=== PATIENT | male | born 1955 | race Caucasian/White ===

== ENCOUNTER 2022-03-24 17:07 | Inpatient (IN) | payer OTHER ==
[2022-03-24] VITALS (367 sets, daily range): BP systolic 120–230; BP diastolic 69–104; PULSE 35–56; TEMP 97.6–97.9; O2SAT 82–100
[~2022-03-24] VITALS: Ht 188 cm; Wt 96.8 kg
[~2022-03-24 17:07] MED LIST: ACCUPRIL10 M1; BYSTOLIC2.5 MG PO; CARDURA 8MG TAB8 MG PO; CATAPRES 0.1MG0.1 MG PO; GLUCOPHAGE1000 MG PO; HUMALOG100 U/ML; LANTUS100 U/ML SC; LIPITOR20 MG PO; MICROZIDE12.5 MG PO; MULTIPLE VITAMI1 CAP PO; OMEGA-3 FISH1200 MG PO
[2022-03-24 18:23] LABS: TSH w REFLEX 1.676 uIU/mL (0.350-4.940)
[2022-03-24 18:25] LABS: TROPONIN-I 0.047 ng/mL (0.00-0.033)
[2022-03-24] MEDS ORDERED: ASPIRIN 81M81 MG/TA2 PO (18:42)
[2022-03-24] MEDS ORDERED: NEURONTIN300 MG/CAP PO (18:47)
[2022-03-24] MEDS ORDERED: TOPROL XL 50MG50 MG PO (18:48)
[2022-03-24] MEDS ORDERED: KLOR-CON M2020 MEQ PO (18:49)
--- NOTE | 2022-03-24 19:41 | NUR ---
PT ARRIVED FROM [facility] VIA EMS. PT A&O, ON ROOM AIR. ADMISSION COMPLETED. HOSPITALIST AND CARDIOLOGY ASSESSED PT. PT HAS ELEVATED SBP. HOSPITALIST AWARE AND STARTED ON CARDENE GTT. HOSPITALIST AWARE OF PT HR. PT ONLY C/O OF "UNSTEADINESS" WHEN STANDING TO USE URINAL AT BEDSIDE. DENIES DIZZINESS, N/V, CHEST PAIN.
[2022-03-25] VITALS (915 sets, daily range): BP systolic 135–183; BP diastolic 72–95; PULSE 42–71; TEMP 98–98.4; O2SAT 93–100
[2022-03-25 06:36] LABS: TROPONIN-I 0.053 ng/mL (0.00-0.033)
[2022-03-25 06:37] LABS: BASO % 0.3 % (0.0-2.0); EOS # 0.2 K/mm3 (0.0-0.7); EOS % 2.3 % (0.0-4.0); GRAN # 6.4 K/mm3 (1.4-6.5); HEMATOCRIT 39.7 % (42.0-52.0); HEMOGLOBIN 13.2 g/dl (13.5-18.0); LYMPH # 1.7 K/mm3 (1.2-3.4); LYMPH % 18.6 % (20.0-51.0); MEAN CELL VOLUME 87 fl (80.0-100.0); MEAN CORPUSCULAR HEMOGLOBIN 29 pg (27-31); MEAN CORPUSCULAR HGB CONC 33 g/dl (33.0-37.0); MEAN PLATELET VOLUME 10.7 fl (7.4-10.4); MONO # 0.7 K/mm3 (0.1-0.6); MONO % 7.5 % (1.7-9.3); PLATELET COUNT 240 K/mm3 (130-400); RED BLOOD COUNT 4.54 M/mm3 (4.20-5.60); REDCELL DISTRIBUTION WIDTH-CV 13.6 % (11.5-14.5)
[2022-03-25 06:56] LABS: CALCIUM 7.8 mg/dL (8.4-10.2); CREATININE, serum 1.58 mg/dL (0.72-1.25); MAGNESIUM 2.1 mg/dL (1.6-2.6); POTASSIUM 3.8 mmol/L (3.5-4.5)
--- NOTE | 2022-03-25 07:00 | NUR ---
Pt resting in bed. Pt awakes to voice. Pt is SB on tele. Pt is hypertensive, pt denies headache, cp, or dizziness. PRN hydralazine given. Pt has call light within reach. Instructed to call with all needs.
--- NOTE | 2022-03-25 10:25 | NUR ---
Spoke with Lexus PEREIRA with regarding bp in the 180's. Pt's home clonadine and hydrachlorathiazide on hold. Lexus states is in a procedure then they will be over to see Pt.
--- NOTE | 2022-03-25 10:52 | NUR ---
Requested BMP results from 's office. Awaiting fax.
--- NOTE | 2022-03-25 11:09 | NUR ---
AND BEDSIDE. NO PLAN FOR PROCEDURES TODAY, WILL ADJUST MEDICATIONS FOR HTN, OK TO PLACE ON AHA DIET.
--- NOTE | 2022-03-25 18:06 | NUR ---
Report called to Frandy PEREIRA. All questions answered. Pt transfered to wheelchair and transported to room 309. Pt belongings (hat,wallet,cellphone,group activities aide, and hearing aids) accompained. Pt transfered to bed, call light given, and instructed to call with all needs. Frandy PEREIRA called and notified of Pt's arrival.
--- NOTE | 2022-03-25 20:30 | NUR ---
Initial shift assessment done- denies pain, Up to bathroom with assist, Tele on-HR 67/min, B/P is better after the Apresoline IV- doroteo getting his normal night meds,
[2022-03-26] MEDS ORDERED: CATAPRES0.2 MG PO (01:33)
[2022-03-26] MEDS ORDERED: HYDRODIURIL50 MG PO (01:34)
[2022-03-26] MEDS ORDERED: BASAGLAR K100 UNIT/1 SQ (01:36)
[2022-03-26] MEDS ORDERED: NOVOLIN R100 UNIT/1 SQ (01:38)
[2022-03-26] MEDS ORDERED: TOPROL XL 50MG50 MG PO (01:39)
[2022-03-26] MEDS ORDERED: ACCUPRIL40MGTAB PO (01:44)
[2022-03-26 04:06] VITALS: BP 143/77; PULSE 64; TEMP 98.4
--- NOTE | 2022-03-26 05:54 | NUR ---
Slept very good last night- tele on- no bradycardia during the night,, B/P stable at 140,s systolic.
[2022-03-26 06:22] LABS: CREATININE, serum 1.85 mg/dL (0.72-1.25); MAGNESIUM 1.9 mg/dL (1.6-2.6); POTASSIUM 3.8 mmol/L (3.5-4.5)
[2022-03-26 08:18] VITALS: BP 155/72; PULSE 64; TEMP 97.8
[2022-03-26] MEDS ORDERED: NORVASC 10MG10 MG PO (10:53)
[2022-03-26 11:32] VITALS: BP 150/73; PULSE 57; TEMP 97.7
[2022-03-26] MEDS ORDERED: PRINIVIL40 MG PO (11:34)
--- NOTE | 2022-03-26 13:15 | NUR ---
IV DISCONTINUED. TELE REMOVED. PATIENT AND GIVEN DISCHARGE EDUCATION AND INSTRUCTIONS. PATIETN TAKEN BY PCT VIA WHEELCHAIR TO PATIENT ENTRANCE. PATIENT LEFT IN STABLE CONDTITION WITH .
== END 2022-03-26 13:15 | disposition home or self-care (01) | DRG 310 ==
LOC: ICU 17:07 → MEDICAL 03-25 19:01
PROVIDERS: ADMIT Internal Medicine
DX: R00.1 Bradycardia, unspecified (principal); E78.5 Hyperlipidemia, unspecified; I16.0 Hypertensive urgency; I12.9 Hypertensive chronic kidney disease with stage 1 through stage 4 chronic kidney disease, or unspecified chronic kidney disease; E11.22 Type 2 diabetes mellitus with diabetic chronic kidney disease; N18.30 Chronic kidney disease, stage 3 unspecified; Z79.82 Long term (current) use of aspirin; Z72.89 Other problems related to lifestyle; Z79.4 Long term (current) use of insulin
CPT/HCPCS: J0360; J1650; J1815; J3475; J7050

== ENCOUNTER → 2023-12-16 | Day surgery (SDC) | payer MEDICARE, OTHER ==
[~2023-12-16] VITALS: Ht 188 cm; Wt 81.1 kg
[~2023-12-16] MED LIST changes: +ACCUPRIL40MGTAB PO; +ALDACTONE 25MG25 M1 PO; +AMOXICILLIN 8751 TAB PO; +ASPIRIN 81M81 MG/TA2 PO; +BASAGLAR K100 UNIT/1 SQ; +CALCITRIOL PO; +CATAPRES0.2 MG PO; +Glycopyrrolate 0.2 MG/ML 1 ML VIAL IV ONE; +HYDRALAZINE HC100 MG PO; +HYDRODIURIL50 MG PO; +KLOR-CON M2020 MEQ PO; +Lidocaine PF 2% (20 MG/ML) 5 ML VIAL IV ONE; +MAG-OX 400400 MG/TAB PO; +Meclizine 25 MG TAB PO SCH; +NATURAL C500 MG PO; +NATURAL FISH1200 MG PO; +NEURONTIN300 MG/CAP PO; +NORVASC 10MG10 MG PO; +NOVOLIN R100 UNIT/1 SQ; +NS 1,000 ML IV SCH; +Ondansetron 4 MG/2 ML VIAL IV ONE; +PLAVIX 75MG TAB75 MG PO; +PRINIVIL40 MG PO; +PROTONIX 40MG T40 MG PO; +Rocuronium 50 MG/5 ML Multi-Dose VIAL IV ONE; +Succinylcholine PF 200 MG/10 ML SYRINGE IV ONE; +TOPROL XL 50MG50 MG PO; +Topical Skin Adhesive 1 EACH (1 ML) TOP ONE; +ZINC SULFATE 1566 MG PO; +fentaNYL 50 MCG/ML 1 ML SYRINGE/VIAL [PACU/SDC ONLY] IV SCH; +fentaNYL 50 MCG/ML 2 ML VIAL IV ONE
[2023-12-16 11:04] LABS: CREATININE, serum 2.71 mg/dL (0.72-1.25); POTASSIUM 3.5 mEq/L (3.5-4.5)
[2023-12-21 11:40] VITALS: BP 130/69; PULSE 60; TEMP 97.4
--- NOTE | 2023-12-21 11:42 | NUR ---
DUE TO DOWNTIME, DOCUMENTATION ON EMR COMPLETED POST-CARE BY CHYNA CHAVEZ RN; REFER TO SCANNED DOWNTIME PAPER DOCUMENTATION FOR FULL CARE DOCUMENTATION.
== END ==
LOC: SDCO 09:30
PROVIDERS: Surgery
DX: I12.0 Hypertensive chronic kidney disease with stage 5 chronic kidney disease or end stage renal disease (principal); N18.5 Chronic kidney disease, stage 5; E11.22 Type 2 diabetes mellitus with diabetic chronic kidney disease; E66.9 Obesity, unspecified; Z68.36 Body mass index [BMI] 36.0-36.9, adult; Z79.899 Other long term (current) drug therapy; Z79.4 Long term (current) use of insulin
CPT/HCPCS: C1750; J0690; J2405; J2704; J3010; J7030